=== PATIENT | female | born 1995 | race Caucasian/White ===

== ENCOUNTER 2019-10-05 00:39 | Inpatient (IN) | payer MEDICAID ==
[~2019-10-05] VITALS: Ht 154.9 cm; Wt 64.4 kg
[2019-10-05] MEDS ORDERED: DEXT 5%/LR + PITOCIN 20UNITS/L 1,000 ML IV SCH ×2 (01:13→03:03)
[2019-10-05] MEDS ORDERED: PNV1TABL76 PO (01:13)
[2019-10-05] MEDS ORDERED: LACTATED RINGERS 1,000 ML IV SCH ×2 (01:13→02:15)
[2019-10-05] MEDS ORDERED: FERR325T6 PO (01:13)
[2019-10-05] MEDS ORDERED: LIDOCAINE HCL 1% 20ML VIAL (Pyxis) INJ INFIL SCH (01:15)
[2019-10-05] MEDS ORDERED: METHYLERGONOVINE MALEATE 0.2 MG/ML IM PRN (01:15)
[2019-10-05] MEDS ORDERED: CARBOPROST TROMETHAMINE 250 MCG/ML AMPUL IM PRN (01:15)
[2019-10-05] MEDS ORDERED: NALOXONE HCL 0.4 MG/ML 1ML VIAL IM PRN (01:15)
[2019-10-05] MEDS ORDERED: BUTORPHANOL TARTRATE 2 MG/ML VIAL IV PRN (01:15)
[2019-10-05 02:24] LABS: BASOPHILS % 0.5 % (0.0-2.0); EOSINOPHILS % 2.8 % (0.0-5.0); HEMATOCRIT. 37.6 % (36.0-48.0); HEMOGLOBIN. 13.2 g/dL (12.0-16.0); LYMPHOCYTES % 24.3 % (20.0-50.0); MEAN CORPUSCULAR HEMOGLOBIN 32.3 pg (28.0-32.0); MEAN CORPUSCULAR VOLUME 92.3 fL (81.0-99.0); MEAN PLATELET VOLUME 10.7 fl (7.4-10.4); MONOCYTES % 6.5 % (2.0-8.0); NEUTROPHILS % 65.9 % (40.0-76.0); PLATELET 157 x1000/uL (130-400); RED BLOOD CELL COUNT 4.07 mill/uL (4.2-5.4); RED CELL DISTRIBUTION WIDTH 14.6 % (11.6-14.6)
[2019-10-05 02:26] LABS: INR 0.9; PARTIAL THROMBOPLASTIN TIME 26.3 sec (23.4-31.0); PROTHROMBIN TIME 9.2 sec (9.6-11.0)
[2019-10-05 02:30] LABS: CLARITY URINE CLOUDY (CLEAR); COLOR URINE YELLOW (YELLOW); KETONES URINE NEGATIVE (NEGATIVE); LEUKOCYTE ESTERASE URINE 3+ (NEGATIVE); NITRITE URINE NEGATIVE (NEGATIVE); OCCULT BLOOD URINE NEGATIVE (NEGATIVE); PH URINE 6.5 (4.5-8.0); PROTEIN URINE NEGATIVE (NEGATIVE); SPECIFIC GRAVITY URINE 1.011 (1.005-1.030); UROBILINOGEN URINE 0.2 E.U./dL (0.2-1.0)
[2019-10-05 02:45] LABS: *AMPHETAMINES SCREEN URINE NEGATIVE (NEGATIVE); *BARBITURATES SCREEN URINE NEGATIVE (NEGATIVE); *BENZODIAZEPINES SCREEN URINE NEGATIVE (NEGATIVE); *COCAINE SCREEN URINE NEGATIVE (NEGATIVE)
[2019-10-05 02:46] LABS: CANNABINOID URINE SCREEN NEGATIVE (NEGATIVE); METHADONE URINE SCREEN NEGATIVE (NEGATIVE); OPIATES URINE SCREEN NEGATIVE (NEGATIVE); PHENCYCLIDINE URINE SCREEN NEGATIVE (NEGATIVE)
[2019-10-05] MEDS ORDERED: BISACODYL 10MG SUPP PR PRN (03:15)
[2019-10-05] MEDS ORDERED: LANOLIN OINT 7GM TUBE TOP PRN (03:15)
[2019-10-05] MEDS ORDERED: OXYCODONE HCL/ACETAMINOPHEN 5/325MG TABLET PO PRN (03:15)
[2019-10-05] MEDS ORDERED: BENZOCAINE/LANOLIN/ALOE VERA SPRAY TOP PRN (03:15)
[2019-10-05] MEDS ORDERED: IBUPROFEN 800MG TABLET PO PRN (03:15)
[2019-10-05] MEDS ORDERED: HEMORRHOIDAL SUPP PR PRN (03:15)
[2019-10-05] MEDS ORDERED: GLYCERIN/WITCH HAZEL LEAF MEDICATED PAD TOP PRN (03:15)
[2019-10-05] MEDS ORDERED: IBUPROFEN 400MG TABLET PO PRN (03:15)
[2019-10-05] MEDS ORDERED: DIPHENHYDRAMINE 25MG CAPSULE PO PRN (03:15)
[2019-10-05 04:03] LABS: HEPATITIS B SURFACE ANTIGEN NEGATIVE
[2019-10-05 04:18] VITALS: BP 117/78
[2019-10-05 04:31] VITALS: BP 114/70
[2019-10-05 05:00] VITALS: BP 117/70
[2019-10-05 07:39] VITALS: BP 103/67
[2019-10-05] MEDS: PRENATAL VIT/FE FUMARATE/FA TABLET PO SCH (09:10)
[2019-10-05] MEDS: SIMETHICONE 80MG TABLET CHEW PO SCH ×3 (09:10→18:00)
[2019-10-05 09:43] LABS: BASOPHILS % 0.7 % (0.0-2.0); EOSINOPHILS % 0.5 % (0.0-5.0); HEMATOCRIT. 37.6 % (36.0-48.0); HEMOGLOBIN. 12.9 g/dL (12.0-16.0); LYMPHOCYTES % 12.4 % (20.0-50.0); MEAN CORPUSCULAR HEMOGLOBIN 32.1 pg (28.0-32.0); MEAN CORPUSCULAR VOLUME 93.4 fL (81.0-99.0); MEAN PLATELET VOLUME 10.1 fl (7.4-10.4); MONOCYTES % 5.2 % (2.0-8.0); NEUTROPHILS % 81.2 % (40.0-76.0); PLATELET 149 x1000/uL (130-400); RED BLOOD CELL COUNT 4.03 mill/uL (4.2-5.4); RED CELL DISTRIBUTION WIDTH 14.6 % (11.6-14.6)
[2019-10-05 16:16] VITALS: BP 104/57
[2019-10-05] MEDS: DOCUSATE SODIUM 100MG CAPSULE PO SCH (21:27)
[2019-10-06] MEDS ORDERED: IBUP-2030 MT (06:20)
[2019-10-06] MEDS ORDERED: INFLUENZA VIRUS VACCINE(AFLURIA) 0.5ML SYR IM ONE (08:00)
[2019-10-06 09:10] VITALS: BP 110/66
[2019-10-06] MEDS: FERROUS SULFATE 325MG TABLET PO SCH ×3 (09:56→18:27)
[2019-10-06] MEDS: PRENATAL VIT/FE FUMARATE/FA TABLET PO SCH (09:56)
[2019-10-06] MEDS: SIMETHICONE 80MG TABLET CHEW PO SCH ×4 (09:57→21:00)
[2019-10-06] MEDS ORDERED: TETANUS, DIPHTHERIA, PERTUSSIS VAC/PF 0.5ML (>7YR OLD) IM ONE (10:00)
[2019-10-06 15:30] VITALS: BP 112/70
[2019-10-06 20:05] VITALS: BP 103/67
[2019-10-06] MEDS: DOCUSATE SODIUM 100MG CAPSULE PO SCH (21:23)
[2019-10-06 23:38] VITALS: BP 105/68
[2019-10-07] MEDS: SIMETHICONE 80MG TABLET CHEW PO SCH (08:00)
[2019-10-07 08:30] VITALS: BP 110/70
[2019-10-07] MEDS: PRENATAL VIT/FE FUMARATE/FA TABLET PO SCH (09:00)
== END 2019-10-07 10:00 | disposition home or self-care (01) | DRG 560 ==
LOC: 8 EST LDRP 00:39 → OBSVTOIN 00:39 → 8EST 05:44
PROVIDERS: ADMIT Obstetrics & Gynecology; ATTEND Obstetrics & Gynecology
PROC: 10E0XZZ Delivery of Products of Conception, External Approach (ICD-10-PCS; principal; 2019-10-05)
DX: O77.0 Labor and delivery complicated by meconium in amniotic fluid (principal); Z37.0 Single live birth; Z3A.39 39 weeks gestation of pregnancy
CPT/HCPCS: 36415; 80305; 81003; 85025; 86592; 86703; 86762; 86850; 86900; 87340; 90686; 90715; 99281; J2590; J3490; J7120